=== PATIENT | female | born 1990 | race Caucasian/White ===

== ENCOUNTER 2024-11-20 11:32 | Emergency (ER) | payer OTHER ==
[~2024-11-20] VITALS: Ht 154.9 cm; Wt 72.9 kg
[2024-11-20] MEDS ORDERED: CLONI1TA PO (13:28)
[2024-11-20 15:15] VITALS: BP 127/76; TEMP 98.8; O2SAT 98
== END 2024-11-20 15:17 | disposition home or self-care (01) ==
LOC: M ED 11:32
DX: F41.9 Anxiety disorder, unspecified (principal); F32.9 Major depressive disorder, single episode, unspecified; Z63.0 Problems in relationship with spouse or partner; M06.9 Rheumatoid arthritis, unspecified; K21.9 Gastro-esophageal reflux disease without esophagitis; J45.909 Unspecified asthma, uncomplicated; Z88.0 Allergy status to penicillin; Z88.1 Allergy status to other antibiotic agents; Z88.2 Allergy status to sulfonamides; Z88.8 Allergy status to other drugs, medicaments and biological substances